=== PATIENT | male | born 1975 | race Caucasian/White ===

== ENCOUNTER 2016-09-18 01:38 | Emergency (ER) | payer OTHER ==
[2016-09-18 02:11] LABS: MEAN CORPUSCULAR HEMOGLOBIN 32.5 pg (27.0-33.0); MEAN CORPUSCULAR HGB CONC 34.3 g/dl (32.0-36.5); MEAN CORPUSCULAR VOLUME 94.6 fl (80.0-96.0); RED CELL DISTRIBUTION WIDTH 12.2 % (11.5-14.5)
[2016-09-18 02:18] LABS: AMPHETAMINES LEVEL URINE NEGATIVE (NEGATIVE); BENZODIAZEPINES URINE NEGATIVE (NEGATIVE); COCAINE METABOLITE URINE NEGATIVE (NEGATIVE); CONTROL LINE INT CTR LINE PRESENT; METHADONE URINE NEGATIVE (NEGATIVE); OPIATES URINE NEGATIVE (NEGATIVE); TRICYCLIC ANTIDEPRESS URINE NEGATIVE (NEGATIVE)
[2016-09-18 02:50] LABS: ALBUMIN 4.4 GM/DL (3.2-5.2); ALBUMIN/GLOBULIN RATIO 1.19 (1.00-1.93); ALKALINE PHOSPHATASE 86 U/L (45-117); ALT/SGPT 48 U/L (12-78); ANION GAP 11 MEQ/L (8-16); AST/SGOT 35 U/L (15-37); BILIRUBIN,DIRECT < 0.1 MG/DL (0.0-0.2); BILIRUBIN,TOTAL 0.2 MG/DL (0.2-1.0); BLOOD UREA NITROGEN 10 MG/DL (7-18); CALCIUM LEVEL 8.7 MG/DL (8.5-10.1); CARBON DIOXIDE LEVEL 24 MEQ/L (21-32); CHLORIDE LEVEL 108 MEQ/L (98-107); CREATININE FOR GFR 0.74 MG/DL (0.70-1.30); GLOMERULAR FILTRATION RATE > 60.0 (>60); GLUCOSE, FASTING 112 MG/DL (70-105); POTASSIUM SERUM 4.3 MEQ/L (3.5-5.1); SODIUM LEVEL 143 MEQ/L (136-145); TOTAL PROTEIN 8.1 GM/DL (6.4-8.2)
--- NOTE | 2016-09-18 11:48 | REP ---
Clinical: Trauma . Technique: AP, lateral, bilateral oblique, and coned-down views. Findings: Alignment and lordosis is maintained. The vertebral bodies including transverse process and spinous processes are intact and there is no evidence for acute fracture / compression injury or subluxation. No evidence for spondylolysis or spondylolisthesis. Degenerative changes primarily involving the L3-4 level with anterior osteophyte, endplate sclerosis and minimal disc space narrowing noted. Impression: No acute fracture or / compression injury or subluxation. Focal degenerative changes at the L3-4 level. Signed by Shivam Cox MD 09/18/2016 11:40 A
--- NOTE | 2016-09-18 12:22 | EDDOCDS ---
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 PD reports patient is intoxicated. Suicide/Homicide risk assessment- The patient admits to and/or has been reported to be having suicidal ideations. 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 Transition of care: patient was not received from another setting of care. 01:42 Acuity: AGUILA Level 3 nn1 01:42 Method Of Arrival: Police Car nn1 12:20 Mental Health Triage Level: Level 2: The patient was brought to the ED for evaluation rs3 because of a legal pickup order. Adult Sepsis Screening: The patient does not have new or worsening altered mentation. Patient's respiratory rate is less than 22. Systolic blood pressure is greater than 100. Patient has a qSOFA score of 0- Negative Sepsis Screen. Mental Health Triage Level: Level 2: The patient was brought to the ED for evaluation because of a legal pickup order. Triage Assessment: 01:45 General: Appears Intoxicated . Behavior is Slurred speech, cooperative . Pain: nn1 Location: left low back and right low back. Pt Declines HIV testing. The patient is triaged at the bedside. See Assessment in Nurses Notes section of ED record. Neurological: Level of Consciousness is awake. Cardiovascular: Capillary refill < 3 seconds. Respiratory: Airway is patent Respiratory effort is even, unlabored, Respiratory pattern is regular, symmetrical. Respiratory: Breath sounds are clear bilaterally. GI: Abdomen is non- distended Bowel sounds present X 4 quads. Abd is soft and non tender X 4 quads. : Urine is clear, diluted. Derm: Skin is pink, warm & dry. Historical: - Allergies: No known drug Allergies; - Home Meds: 1. none - PMHx: Chronic Back pain; - PSHx: none; - Social history: Smoking status: Patient uses tobacco products, heavy tobacco smoker. No barriers to communication noted. - Family history: Not pertinent. - : The pt / caregiver states he / she is not on anticoagulants. Home medication list is obtained from the patient. - Exposure Risk Screening:: None identified. Screenin:00 Screening information is obtained from the patient. Fall risk: No risks identified. slm Assistance ADL's: requires no assistance with activities of daily living. Abuse/DV Screen: The patient / caregiver reports he/she is: not in a situation that causes fear, pain or injury. Nutritional screening: No deficits noted. Advance Directives: Currently, there is no health care proxy. There is no active DNR order. There is no living will. There is no Power of Photo Lab Specialist. Advance directive information has not previously been placed in an [facility] medical record. Further advance directive information is declined. home support is inadequate. Assessment: 01:47 General: See triage assessment . nn1 02:05 General: Appears in no apparent distress, comfortable, Behavior is cooperative. slm Respiratory: Airway is patent Respiratory effort is even, unlabored. 02:32 General: Appears in no apparent distress, comfortable, Behavior is cooperative, pt slm resting on stretcher security observing . 03:50 General: Appears in no apparent distress, comfortable, to be sleeping. Behavior is slm quiet. General: pt asleep on stretcher security observing . Respiratory: Airway is patent Respiratory effort is even, unlabored. Derm: Skin is pink, warm & dry. 04:14 General: Appears in no apparent distress, comfortable, to be sleeping. Behavior is slm cooperative, quiet. General: security observing . Respiratory: Airway is patent Respiratory effort is even, unlabored. Derm: Skin is pink, warm & dry. 05:24 General: Appears in no apparent distress, comfortable, to be sleeping. Behavior is slm quiet. General: pt resting on stretcher security observing . Respiratory: Airway is patent Respiratory effort is even, unlabored. Derm: Skin is pink, warm & dry. 05:47 General: Appears in no apparent distress, comfortable, Behavior is cooperative, slm pleasant. General: pt ambulated to bather denies needs security observing . Neurological: Level of Consciousness is alert, obeys commands. Respiratory: Airway is patent Respiratory effort is even, unlabored. Derm: Skin is pink, warm & dry. 06:28 General: Appears in no apparent distress, comfortable, Behavior is cooperative, pt af2 resting quietly on stretcher with eyes closed, RR even and unlabored. . 07:32 General: Appears in no apparent distress, comfortable, Behavior is appropriate for age, hs1 cooperative. Neurological: No deficits noted. Level of Consciousness is alert, obeys commands. Respiratory: Airway is patent Respiratory effort is even, unlabored. Derm: Skin is pink, warm & dry. 09:35 General: Appears in no apparent distress, to be sleeping. Behavior is cooperative, hs1 Respirations even unlabored. Security continuing safety checks. . 12:19 Reassessment: Patient appears in no apparent distress at this time. Patient denies pain rs3 at this time. Patient states feeling better. Patient states symptoms have improved. Mental Health Eval: 01:44 Referral Information: Evaluation referral is generated by a police agency: [employer] on .. The patient was referred for evaluation because Police responded to 911 hang-up call at which point pt.'s GF informed Officers that pt made statement "if I had my shotgun I would kill myself", Police add that pt.'s firearms had been confiscated by [facility] several weeks prior but unclear as to why. Per Police pt also had numerous pill bottles laying around though pt denied taking any medications. Pt reportedly drinking tonight as well, appears intoxicated on arrival.. 11:31 Mental health consult is initiated at 11:00. 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 [facility] Behavioral Health: The patient is not an established patient of [facility] Behavioral Health. Subjective: The patients chief complaint is pt states, "I was just really drunk and I don't remember anything." He adamantly denies SI and HI, able to CFS. States he's been having chronic lower back pain, which is getting worse, but mostly missing his Father who 2 years ago. Apparently his upcoming anniversary is Father's is in 2 days. Spoke to GF(December, Ph#[phone]) who reports not having any safety concerns and states, "he was just really drunk." She reports pt does not have any previous psych hx and states his suicidal threat was all alcohol related. They returned home from the bar last night and began crying due to missing his father and having to work 2 jobs, then made the suicidal threat. Pt has no access to weapons at home. . Delusions are denied. Patient's mood is appropriate. Hallucinations are denied. Mental Health history: no relevant mental health problems or treatments. Mental Health Admissions: None. Current Outpatient Mental Health Services: None. Current living environment is The patient currently lives with his / her significant other, December, #[phone] . The patient is single. Patient presents to Emergency Department with the following symptoms within the past 2 weeks: alcohol abuse, suicidal ideation with plan for shot gun, however pt was intoxicated and adamantly denies SI currently(while sober) . Substance abuse: Pt denies. Mental status exam: Patients appearance is appropriate, Patient's behavior is cooperative, Speech is normal. Affect is appropriate. Mood is appropriate. Hallucinations are denied. Appetite is normal. Memory is good. Energy level is normal. Content of thought is normal. Thought process is intact. Cognitive level is oriented to person, place, time and situation Patient's insight is fair. Judgement is fair. Rapport with interviewer is good. Suicidal Ideation is denied. Homicidal ideation is denied. Disposition: Medically cleared for disposition by Nicolette Buckley MD Psychiatric Consult is performed by phone with Dr Peter Loya. [facility] Admission Criteria: Not Applicable. [place] Safe [place]: [place] is [place] because the patient does not display any suicidal or homicidal ideations and does not pose a risk to self or others. DSM-V Differential Diagnosis: Alcohol Intoxication. Narrative: Pt is able to be discharged from [facility]. He continues to deny SI and HI, able to CFS. S.O is comfortable with discharge plan and currently en-route to [facility] to transport pt home. Referrals for outpt services was given at bedside. Vital Signs: 01:50 BP 137 / 90; Pulse 116; Resp 18; Temp 98.5; Pulse Ox 95% on R/A; Weight 101.6 kg; slm Height 5 ft. 11 in. (180.34 cm); Pain 9/10; 05:51 BP 117 / 63; Pulse 85; Resp 16; Temp 96.7(T); Pulse Ox 97% on R/A; Pain 7/10; slm 12:19 BP 160 / 98; Pulse 89; Resp 18; Temp 98(T); Pulse Ox 99% on R/A; Pain 0/10; rs3 01:50 Body Mass Index 31.24 (101.60 kg, 180.34 cm) [facility] Vitals: 01:50 Log In time N/A- police car arrival. [facility] ED Course: 01:42 Patient visited by Nafisa Paniagua Reg. hs2 01:42 Patient moved to Waiting hs2 01:42 Patient moved to [facility] hs2 01:44 Triage Initiated nn1 01:45 Abdifatah Hall DO is Attending Physician. cs11 01:46 Patient visited by Abdifatah Hall DO. cs11 01:50 Chata Sandoval LPN is Primary Nurse. [facility] 01:50 MHE Legal paperwork was scanned into [employer] and attached to record. cl 01:51 Pt greeted and oriented to ED. Patient advised of names of staff involved in care, [facility] location of call bales, wait times and NPO status. Accompanied by Law Enforcement, Patient has correct armband on for positive identification. Placed in psych safe attire. Bed in low position. Call light in reach. Side rails up X 1. Security observing. Property removed, inventory done, secured in belongings bag- Placed in locker 1. Door closed. Noise minimized. Moved to private room. Verbal reassurance given. Warm blanket given. Pillow given. Psych Safety Check: Location: Psych Room. Visual Assessment: cooperative \\T\\ this time. 02:01 Patient visited by Chata Sandoval LPN. slm 02:05 No IV's were initiated during this patient's visit. No procedures done that require slm assistance. Labs drawn. (by ED staff). Sent per order to lab. Urine collected. Urine specimen sent to lab. 02:15 Patient visited by Keyshawn Rodriguez. mas 02:32 Patient visited by Chata Sandoval LPN. slm 02:42 Patient visited by Chata Sandoval LPN. slm 02:47 Patient visited by Chata Sandoval LPN. slm 03:01 Patient visited by Chata Sandoval LPN. slm 03:15 Patient visited by Chata Sandoval LPN. slm 03:30 Patient visited by Keyshawn Rodriguez. mas 03:45 Patient visited by Keyshawn Rodriguez. mas 03:46 Patient moved to OBSERVATION cs11 03:52 Patient visited by Chata Sandoval LPN. slm 04:00 Patient visited by Keyshawn Rodriguez. mas 04:14 Patient visited by Chata Sandoval LPN. slm 04:16 Patient visited by Keyshawn Rodriguez. mas 04:45 Patient visited by Keyshawn Rodriguez. mas 05:00 Patient visited by Keyshawn Rodriguez. mas 05:17 Patient visited by Keyshawn Rodriguez. mas 05:24 Patient visited by Chata Sandoval LPN. slm 05:52 Patient visited by Chata Sandoval LPN. slm 05:54 Patient visited by Chata Sandoval LPN. slm 06:17 Patient visited by Chata Sandoval LPN. slm 06:29 Patient visited by Adri Vargas RN. af2 06:30 Patient visited by Keyshawn Rodriguez. mas 06:45 Patient visited by Keyshawn Rodriguez. mas 07:00 Patient visited by Keyshawn Rodriguez. mas 07:10 Attending Physician role handed off by Abdifatah Hall DO sd1 07:10 Nicolette Buckley MD is Attending Physician. sd1 07:18 Patient visited by Kulwinder Noyola Security Aide. pjf 07:35 Patient visited by Kulwinder Noyola Security Aide. pjf 07:47 Patient visited by Kulwinder Noyola Security Aide. pjf 07:58 Patient visited by Kulwinder Noyola Security Aide. pjf 08:13 Patient visited by Kulwinder Noyola Security Aidmerary. pjf 08:35 Patient visited by Kulwinder Noyola Security Rakel. pjf 08:47 Patient visited by Kulwinder Noyola Security Aide. pjf 09:22 Patient visited by Judson Pepper. jml1 09:41 Patient visited by Kulwinder Noyola Security Aide. pjf 10:06 Patient visited by Kulwinder Noyola Security Aide. pjf 10:15 Psych Safety Check: Location: Psych Room. Visual Assessment: Cooperative. pjf 10:32 Patient visited by Kulwinder Noyola Security Aide. pjf 10:48 Patient visited by Kulwinder Noyola Security Aide. pjf 11:10 Lynette Cody,RN is Primary Nurse. rs3 11:14 Patient visited by Kulwinder Noyola Security Aide. pjf 11:39 Patient visited by Kulwinder Noyola Security Aide. pjf 11:49 Patient visited by Kulwinder Noyola Security Aide. pjf 11:50 Spine. Lumbosacral, Complete Returned. EDMS 12:09 Patient visited by Kulwinder Noyola Security Aide. pjf 12:09 Referral list, As provided by PFS is Referral Physician. sd1 12:18 Patient visited by Kulwinder Noyola Security Aide. pjf 12:20 The patient / caregiver is instructed regarding the plan of care and ED course. rs3 Attachments: 01:50 MHE Legal paperwork cl Order Results: Lab Order: Acetaminophen Level; SPEC'M 09/18/16 02:00 Test: ACETAMINOPHEN LEVEL; Value: < 2.0; Range: 10.0-30.0; Abnormal: Below low normal; Units: UG/ML; Status: F Lab Order: Basic Metabolic Profile; SPEC'M 09/18/16 02:00 Test: GLUCOSE, FASTING; Value: 112; Range: 70-105; Abnormal: Above high normal; Units: MG/DL; Status: F Test: BLOOD UREA NITROGEN; Value: 10; Range: 7-18; Units: MG/DL; Status: F Test: CREATININE FOR GFR; Value: 0.74; Range: 0.70-1.30; Units: MG/DL; Status: F Test: GLOMERULAR FILTRATION RATE; Value: > 60.0; Range: >60; Status: F Test: SODIUM LEVEL; Value: 143; Range: 136-145; Units: MEQ/L; Status: F Test: POTASSIUM SERUM; Value: 4.3; Range: 3.5-5.1; Units: MEQ/L; Status: F Test: CHLORIDE LEVEL; Value: 108; Range: 98-107; Abnormal: Above high normal; Units: MEQ/L; Status: F Test: CARBON DIOXIDE LEVEL; Value: 24; Range: 21-32; Units: MEQ/L; Status: F Test: ANION GAP; Value: 11; Range: 8-16; Units: MEQ/L; Status: F Test: CALCIUM LEVEL; Value: 8.7; Range: 8.5-10.1; Units: MG/DL; Status: F Test Note: ; Units are mL/min/1.73 m2 Chronic Kidney Disease Staging per NKF: Stage I & II GFR >=60 Normal to Mildly Decreased Stage III GFR 30-59 Moderately Decreased Stage IV GFR 15-29 Severely Decreased Stage V GFR <15 Very Little GFR Left ESRD GFR <15 on [facility] Lab Order: Complete Blood Count; SPEC'M 09/18/16 02:00 Test: WHITE BLOOD COUNT; Value: 8.0; Range: 4.0-10.0; Units: K/mm3; Status: F Test: RED BLOOD COUNT; Value: 4.99; Range: 4.30-6.10; Units: M/mm3; Status: F Test: HEMOGLOBIN; Value: 16.2; Range: 14.0-18.0; Units: g/dl; Status: F Test: HEMATOCRIT; Value: 47.2; Range: 42.0-52.0; Units: %; Status: F Test: MEAN CORPUSCULAR VOLUME; Value: 94.6; Range: 80.0-96.0; Units: fl; Status: F Test: MEAN CORPUSCULAR HEMOGLOBIN; Value: 32.5; Range: 27.0-33.0; Units: pg; Status: F Test: MEAN CORPUSCULAR HGB CONC; Value: 34.3; Range: 32.0-36.5; Units: g/dl; Status: F Test: RED CELL DISTRIBUTION WIDTH; Value: 12.2; Range: 11.5-14.5; Units: %; Status: F Test: PLATELET COUNT, AUTOMATED; Value: 206; Range: 150-450; Units: k/mm3; Status: F Lab Order: Drug Eval Toxicology ED Only; SPEC'M 09/18/16 01:57 Test: AMPHETAMINES LEVEL URINE; Value: NEGATIVE; Range: NEGATIVE; Status: F Test: BARBITURATES URINE; Value: NEGATIVE; Range: NEGATIVE; Status: F Test: BENZODIAZEPINES URINE; Value: NEGATIVE; Range: NEGATIVE; Status: F Test: CANNABINOIDS URINE; Value: POSITIVE; Range: NEGATIVE; Abnormal: Above high normal; Status: F Test: COCAINE METABOLITE URINE; Value: NEGATIVE; Range: NEGATIVE; Status: F Test: METHADONE URINE; Value: NEGATIVE; Range: NEGATIVE; Status: F Test: OPIATES URINE; Value: NEGATIVE; Range: NEGATIVE; Status: F Test: TRICYCLIC ANTIDEPRESS URINE; Value: NEGATIVE; Range: NEGATIVE; Status: F Test Note: ; FALSE POSITIVE RESULTS CAN BE CAUSED BY THE USE OF PANTOPRAZOLE (PROTONIX). Lab Order: Ethyl Alcohol (ethanol); SPEC'M 09/18/16 02:00 Test: ETHYL ALCOHOL (ETHANOL); Value: 0.241; Range: 0.000-0.010; Abnormal: Above high normal; Units: %; Status: F Lab Order: Liver Profile; SPEC'M 09/18/16 02:00 Test: AST/SGOT; Value: 35; Range: 15-37; Units: U/L; Status: F Test: ALT/SGPT; Value: 48; Range: 12-78; Units: U/L; Status: F Test: ALKALINE PHOSPHATASE; Value: 86; Range: 45-117; Units: U/L; Status: F Test: BILIRUBIN,TOTAL; Value: 0.2; Range: 0.2-1.0; Units: MG/DL; Status: F Test: BILIRUBIN,DIRECT; Value: < 0.1; Range: 0.0-0.2; Units: MG/DL; Status: F Test: TOTAL PROTEIN; Value: 8.1; Range: 6.4-8.2; Units: GM/DL; Status: F Test: ALBUMIN; Value: 4.4; Range: 3.2-5.2; Units: GM/DL; Status: F Test: ALBUMIN/GLOBULIN RATIO; Value: 1.19; Range: 1.00-1.93; Status: F Lab Order: Salicylate Level; SPEC'M 09/18/16 02:00 Test: SALICYLATE LEVEL; Value: 2.7; Range: 5.0-30.0; Abnormal: Below low normal; Units: MG/DL; Status: F Lab Order: Thyroid Stimulating Hormone; SPEC'09/18/16 02:00 Test: THYROID STIMULATING HORMONE; Value: 1.070; Range: 0.358-3.740; Units: uIU/ML; Status: F Radiology Order: Spine. Lumbosacral, Complete Test: Spine. Lumbosacral, Complete REASON FOR EXAMINATION: Trauma; Clinical: Trauma .; ; Technique: AP, lateral, bilateral oblique, and coned-down views.; ; Findings: Alignment and lordosis is maintained. The vertebral bodies including; transverse process and spinous processes are intact and there is no evidence for; acute fracture / compression injury or subluxation. No evidence for; spondylolysis or spondylolisthesis. Degenerative changes primarily involving the; L3-4 level with anterior osteophyte, endplate sclerosis and minimal disc space; narrowing noted.; ; Impression:; No acute fracture or / compression injury or subluxation.; Focal degenerative changes at the L3-4 level.; ; ; Signed by; Shivam Cox MD 09/18/2016 11:40 A; Outcome: 03:51 No special radiology studies were completed. [facility] 12:10 Discharge ordered by Provider. sd1 12:20 Discharge Assessment: patient administered narcotics - no. The following High Risk rs3 Discharge criteria are identified: None. Discharged to home with family. Condition: stable. Discharge instructions given to patient, Instructed on discharge instructions, follow up and referral plans. medication usage, Demonstrated understanding of instructions, medications, Pt was receptive of discharge instructions/ teaching. 12:21 Patient left the ED. rs3 Signatures: Dispatcher [employer] EDMS Nicolette Buckley MD MD sd1 Hector Pandey, PSA PSA cl Jazmín, Kulwinder, Security Aide Secstacyf Jaqueline Barbosa, PSA PSA ml4 Lynette Cody RN RN rs3 Adelaide Springer RN RN hs1 Keyshawn Rodriguez Jamie jmAbdifatah Gusman, DO cs11 Chata Sandoval LPN LPN Adri Marin,RN RN af2 Osorio Kirkland RN RN nn1 Nafisa Paniagua, Reg Reg hs2 MTDD
--- NOTE | 2016-09-18 12:22 | EDDOCDS ---
Physician Documentation [facility] Name: Raj Clarke Age: 41 yrs Sex: Male : 1975 Arrival Date: 09/18/2016 Time: 01:38 Bed OBSERVATION Private MD: Disposition: 09/18/16 12:10 Discharged to Home/Self Care. Impression: Alcohol use, unspecified with intoxication. - Condition is Stable. - Discharge Instructions: Alcohol Intoxication. - Medication Reconciliation, Local Pharmacy Hours form. - Follow up: Referral list, As provided by PFS; When: Call to arrange an appointment. - Problem is new. - Symptoms have improved. Historical: - Allergies: No known drug Allergies; - Home Meds: 1. none - PMHx: Chronic Back pain; - PSHx: none; - Social history: Smoking status: Patient uses tobacco products, heavy tobacco smoker. No barriers to communication noted. - Family history: Not pertinent. - : The pt / caregiver states he / she is not on anticoagulants. Home medication list is obtained from the patient. - Exposure Risk Screening:: None identified. Vital Signs: 09/18 01:50 BP 137 / 90; Pulse 116; Resp 18; Temp 98.5; Pulse Ox 95% on R/A; Weight 101.6 kg / slm 223.99 lbs; Height 5 ft. 11 in. (180.34 cm); Pain 9/10; 05:51 BP 117 / 63; Pulse 85; Resp 16; Temp 96.7(T); Pulse Ox 97% on R/A; Pain 7/10; slm 12:19 BP 160 / 98; Pulse 89; Resp 18; Temp 98(T); Pulse Ox 99% on R/A; Pain 0/10; rs3 01:50 Body Mass Index 31.24 (101.60 kg, 180.34 cm) slm MDM: 01:46 Consult PFS/PSA/Industrial Technologist ordered. cs11 01:46 Consult PFS/PSA/Industrial Technologist: Patient's case requires discussion with on-call cs11 Psychiatrist ordered. 01:46 PSA/PFS to call Nursing [facility] Nurse, to enter patient data on [place] Safe Act if patient cs11 involuntarily admitted or transferred for SI or HI ordered. 01:46 Confirm accurate psychiatric medication list and times of last dosage ordered. cs11 01:46 Detain Pt Until Medically/PFS Cleared ordered. cs11 01:46 Acetaminophen Level Ordered. EDMS 01:46 Basic Metabolic Profile Ordered. EDMS 01:46 Complete Blood Count Ordered. EDMS 01:46 Drug Eval Toxicology ED Only Ordered. EDMS 01:46 Ethyl Alcohol (ethanol) Ordered. EDMS 01:46 Liver Profile Ordered. EDMS 01:46 Salicylate Level Ordered. EDMS 01:46 Thyroid Stimulating Hormone Ordered. EDMS 01:50 MHE Legal paperwork was scanned into [facility] and attached to record. cl 03:50 REGULAR DIET PLASTIC TORRES+DIET ordered. EDMS 04:19 Acetaminophen Level Reviewed. cs11 04:19 Basic Metabolic Profile Reviewed. cs11 04:19 Drug Eval Toxicology ED Only Reviewed. cs11 04:19 Ethyl Alcohol (ethanol) Reviewed. cs11 04:19 Salicylate Level Reviewed. cs11 04:19 Complete Blood Count Reviewed. cs11 04:19 Liver Profile Reviewed. cs11 04:19 Thyroid Stimulating Hormone Reviewed. cs11 11:26 Spine. Lumbosacral, Complete Ordered. EDMS 11:27 REGULAR DIET PLASTIC TORRES+DIET ordered. EDMS Signatures: Dispatcher [employer] Information EDMS Nicolette Buckley MD MD sd1 Hector Pandey, PSA PSA cl Lynette Cody,RN RN rs3 Abdifatah Hall DO DO cs11 Osorio KirklandRN RN nn1 MTDD
--- NOTE | 2016-09-20 13:22 | EDDOCDS ---
Physician Documentation [facility] [facility] Name: Raj Clarke Age: 41 yrs Sex: Male : 1975 Arrival Date: 09/18/2016 Time: 01:38 Bed OBSERVATION Private MD: Disposition: 09/18/16 12:10 Discharged to Home/Self Care. Impression: Alcohol use, unspecified with intoxication. - Condition is Stable. - Discharge Instructions: Alcohol Intoxication. - Medication Reconciliation, Local Pharmacy Hours form. - Follow up: Referral list, As provided by PFS; When: Call to arrange an appointment. - Problem is new. - Symptoms have improved. Historical: - Allergies: No known drug Allergies; - Home Meds: 1. none - PMHx: Chronic Back pain; - PSHx: none; - Social history: Smoking status: Patient uses tobacco products, heavy tobacco smoker. No barriers to communication noted. - Family history: Not pertinent. - : The pt / caregiver states he / she is not on anticoagulants. Home medication list is obtained from the patient. - Exposure Risk Screening:: None identified. Vital Signs: 09/18 01:50 BP 137 / 90; Pulse 116; Resp 18; Temp 98.5; Pulse Ox 95% on R/A; Weight 101.6 kg / slm 223.99 lbs; Height 5 ft. 11 in. (180.34 cm); Pain 9/10; 05:51 BP 117 / 63; Pulse 85; Resp 16; Temp 96.7(T); Pulse Ox 97% on R/A; Pain 7/10; slm 12:19 BP 160 / 98; Pulse 89; Resp 18; Temp 98(T); Pulse Ox 99% on R/A; Pain 0/10; rs3 01:50 Body Mass Index 31.24 (101.60 kg, 180.34 cm) slm MDM: 01:46 Consult PFS/PSA/Box Cutter ordered. cs11 01:46 Consult PFS/PSA/Box Cutter: Patient's case requires discussion with on-call cs11 Psychiatrist ordered. 01:46 PSA/PFS to call Nursing Embalmer Apprentice, to enter patient data on [place] Safe Act if patient cs11 involuntarily admitted or transferred for SI or HI ordered. 01:46 Confirm accurate psychiatric medication list and times of last dosage ordered. cs11 01:46 Detain Pt Until Medically/PFS Cleared ordered. cs11 01:46 Acetaminophen Level Ordered. EDMS 01:46 Basic Metabolic Profile Ordered. EDMS 01:46 Complete Blood Count Ordered. EDMS 01:46 Drug Eval Toxicology ED Only Ordered. EDMS 01:46 Ethyl Alcohol (ethanol) Ordered. EDMS 01:46 Liver Profile Ordered. EDMS 01:46 Salicylate Level Ordered. EDMS 01:46 Thyroid Stimulating Hormone Ordered. EDMS 01:50 [facility] Legal paperwork was scanned into [employer] and attached to record. cl 03:50 REGULAR DIET PLASTIC TORRES+DIET ordered. EDMS 04:19 Acetaminophen Level Reviewed. cs11 04:19 Basic Metabolic Profile Reviewed. cs11 04:19 Drug Eval Toxicology ED Only Reviewed. cs11 04:19 Ethyl Alcohol (ethanol) Reviewed. cs11 04:19 Salicylate Level Reviewed. cs11 04:19 Complete Blood Count Reviewed. cs11 04:19 Liver Profile Reviewed. cs11 04:19 Thyroid Stimulating Hormone Reviewed. cs11 11:26 Spine. Lumbosacral, Complete Ordered. EDMS 11:27 REGULAR DIET PLASTIC TORRES+DIET ordered. EDMS 17:11 T-Sheet-- Draft Copy was scanned into [employer] and attached to record. klr Signatures: Dispatcher [employer] EDMO Nicolette Buckley MD MD sd1 Hector Pandey, PSA PSA cl Lynette Cody,RN RN rs3 Abdifatah Hall DO DO cs11 Osorio KirklandRN RN nn1 Sera Lewis kltai The chart was reviewed and I authenticate all verbal orders and agree with the evaluation and treatment provided.Attachments: 17:11 T-Sheet-- Draft Copy klr Chart Complete MTDD
--- NOTE | 2016-09-20 13:22 | EDDOCDS ---
Physician Documentation [facility] Name: Raj Clarke Age: 41 yrs Sex: Male : 1975 Arrival Date: 09/18/2016 Time: 01:38 Bed OBSERVATION Private MD: Disposition: 09/18/16 12:10 Discharged to Home/Self Care. Impression: Alcohol use, unspecified with intoxication. - Condition is Stable. - Discharge Instructions: Alcohol Intoxication. - Medication Reconciliation, Local Pharmacy Hours form. - Follow up: Referral list, As provided by PFS; When: Call to arrange an appointment. - Problem is new. - Symptoms have improved. Historical: - Allergies: No known drug Allergies; - Home Meds: 1. none - PMHx: Chronic Back pain; - PSHx: none; - Social history: Smoking status: Patient uses tobacco products, heavy tobacco smoker. No barriers to communication noted. - Family history: Not pertinent. - : The pt / caregiver states he / she is not on anticoagulants. Home medication list is obtained from the patient. - Exposure Risk Screening:: None identified. Vital Signs: 09/18 01:50 BP 137 / 90; Pulse 116; Resp 18; Temp 98.5; Pulse Ox 95% on R/A; Weight 101.6 kg / slm 223.99 lbs; Height 5 ft. 11 in. (180.34 cm); Pain 9/10; 05:51 BP 117 / 63; Pulse 85; Resp 16; Temp 96.7(T); Pulse Ox 97% on R/A; Pain 7/10; slm 12:19 BP 160 / 98; Pulse 89; Resp 18; Temp 98(T); Pulse Ox 99% on R/A; Pain 0/10; rs3 01:50 Body Mass Index 31.24 (101.60 kg, 180.34 cm) slm MDM: 01:46 Consult PFS/PSA/Primary Care Nurse Practitioner ordered. cs11 01:46 Consult PFS/PSA/Primary Care Nurse Practitioner: Patient's case requires discussion with on-call cs11 Psychiatrist ordered. 01:46 PSA/PFS to call Nursing Aerospace Project Engineer, to enter patient data on [place] Safe Act if patient cs11 involuntarily admitted or transferred for SI or HI ordered. 01:46 Confirm accurate psychiatric medication list and times of last dosage ordered. cs11 01:46 Detain Pt Until Medically/PFS Cleared ordered. cs11 01:46 Acetaminophen Level Ordered. EDMS 01:46 Basic Metabolic Profile Ordered. EDMS 01:46 Complete Blood Count Ordered. EDMS 01:46 Drug Eval Toxicology ED Only Ordered. EDMS 01:46 Ethyl Alcohol (ethanol) Ordered. EDMS 01:46 Liver Profile Ordered. EDMS 01:46 Salicylate Level Ordered. EDMS 01:46 Thyroid Stimulating Hormone Ordered. EDMS 01:50 [facility] Legal paperwork was scanned into [employer] and attached to record. cl 03:50 REGULAR DIET PLASTIC TORRES+DIET ordered. EDMS 04:19 Acetaminophen Level Reviewed. cs11 04:19 Basic Metabolic Profile Reviewed. cs11 04:19 Drug Eval Toxicology ED Only Reviewed. cs11 04:19 Ethyl Alcohol (ethanol) Reviewed. cs11 04:19 Salicylate Level Reviewed. cs11 04:19 Complete Blood Count Reviewed. cs11 04:19 Liver Profile Reviewed. cs11 04:19 Thyroid Stimulating Hormone Reviewed. cs11 11:26 Spine. Lumbosacral, Complete Ordered. EDMS 11:27 REGULAR DIET PLASTIC TORRES+DIET ordered. EDMS 17:11 T-Sheet-- Draft Copy was scanned into [employer] and attached to record. klr Signatures: Dispatcher [employer] EDMA Nicolette Buckley MD MD sd1 Hector Pandey, PSA PSA cl Lynette Cody,RN RN rs3 Abdifatah Hall DO DO cs11 Osorio KirklandRN RN nn1 Sera Lewis kltai The chart was reviewed and I authenticate all verbal orders and agree with the evaluation and treatment provided.Attachments: 17:11 T-Sheet-- Draft Copy klr Chart Complete MTDD
--- NOTE | 2016-09-20 13:22 | EDDOCDS ---
Nurse's Notes [facility] Name: Raj Clarke Age: 41 yrs Sex: Male : 1975 Arrival Date: 09/18/2016 Time: 01:38 Bed OBSERVATION Private MD: Diagnosis: Alcohol use, unspecified with intoxication Presentation: 09/18 01:42 Presenting complaint: PD reports bean picker call due to suicidal threats from patient, PD nn1 states patient told girlfriend "If i had my shotgun I would kill myself". PD reports patient is intoxicated. Suicide/Homicide risk assessment- The patient admits to and/or has been reported to be having suicidal ideations. Status: Patient is not a room service runner or dependent. Transition of care: patient was not received from another setting of care. 01:42 Acuity: AGUILA Level 3 nn1 01:42 Method Of Arrival: Police Car nn1 12:20 Mental Health Triage Level: Level 2: The patient was brought to the ED for evaluation rs3 because of a legal pickup order. Adult Sepsis Screening: The patient does not have new or worsening altered mentation. Patient's respiratory rate is less than 22. Systolic blood pressure is greater than 100. Patient has a qSOFA score of 0- Negative Sepsis Screen. Mental Health Triage Level: Level 2: The patient was brought to the ED for evaluation because of a legal pickup order. Triage Assessment: 01:45 General: Appears Intoxicated . Behavior is Slurred speech, cooperative . Pain: nn1 Location: left low back and right low back. Pt Declines HIV testing. The patient is triaged at the bedside. See Assessment in Nurses Notes section of ED record. Neurological: Level of Consciousness is awake. Cardiovascular: Capillary refill < 3 seconds. Respiratory: Airway is patent Respiratory effort is even, unlabored, Respiratory pattern is regular, symmetrical. Respiratory: Breath sounds are clear bilaterally. GI: Abdomen is non- distended Bowel sounds present X 4 quads. Abd is soft and non tender X 4 quads. : Urine is clear, diluted. Derm: Skin is pink, warm & dry. Historical: - Allergies: No known drug Allergies; - Home Meds: 1. none - PMHx: Chronic Back pain; - PSHx: none; - Social history: Smoking status: Patient uses tobacco products, heavy tobacco smoker. No barriers to communication noted. - Family history: Not pertinent. - : The pt / caregiver states he / she is not on anticoagulants. Home medication list is obtained from the patient. - Exposure Risk Screening:: None identified. Screenin:00 Screening information is obtained from the patient. Fall risk: No risks identified. slm Assistance ADL's: requires no assistance with activities of daily living. Abuse/DV Screen: The patient / caregiver reports he/she is: not in a situation that causes fear, pain or injury. Nutritional screening: No deficits noted. Advance Directives: Currently, there is no health care proxy. There is no active DNR order. There is no living will. There is no Power of Lot Associate. Advance directive information has not previously been placed in an [facility] medical record. Further advance directive information is declined. home support is inadequate. Assessment: 01:47 General: See triage assessment . nn1 02:05 General: Appears in no apparent distress, comfortable, Behavior is cooperative. slm Respiratory: Airway is patent Respiratory effort is even, unlabored. 02:32 General: Appears in no apparent distress, comfortable, Behavior is cooperative, pt slm resting on stretcher security observing . 03:50 General: Appears in no apparent distress, comfortable, to be sleeping. Behavior is slm quiet. General: pt asleep on stretcher security observing . Respiratory: Airway is patent Respiratory effort is even, unlabored. Derm: Skin is pink, warm & dry. 04:14 General: Appears in no apparent distress, comfortable, to be sleeping. Behavior is slm cooperative, quiet. General: security observing . Respiratory: Airway is patent Respiratory effort is even, unlabored. Derm: Skin is pink, warm & dry. 05:24 General: Appears in no apparent distress, comfortable, to be sleeping. Behavior is slm quiet. General: pt resting on stretcher security observing . Respiratory: Airway is patent Respiratory effort is even, unlabored. Derm: Skin is pink, warm & dry. 05:47 General: Appears in no apparent distress, comfortable, Behavior is cooperative, slm pleasant. General: pt ambulated to bather denies needs security observing . Neurological: Level of Consciousness is alert, obeys commands. Respiratory: Airway is patent Respiratory effort is even, unlabored. Derm: Skin is pink, warm & dry. 06:28 General: Appears in no apparent distress, comfortable, Behavior is cooperative, pt af2 resting quietly on stretcher with eyes closed, RR even and unlabored. . 07:32 General: Appears in no apparent distress, comfortable, Behavior is appropriate for age, hs1 cooperative. Neurological: No deficits noted. Level of Consciousness is alert, obeys commands. Respiratory: Airway is patent Respiratory effort is even, unlabored. Derm: Skin is pink, warm & dry. 09:35 General: Appears in no apparent distress, to be sleeping. Behavior is cooperative, hs1 Respirations even unlabored. Security continuing safety checks. . 12:19 Reassessment: Patient appears in no apparent distress at this time. Patient denies pain rs3 at this time. Patient states feeling better. Patient states symptoms have improved. Mental Health Eval: 01:44 Referral Information: Evaluation referral is generated by a police agency: [employer] on .. The patient was referred for evaluation because Police responded to 911 hang-up call at which point pt.'s GF informed Officers that pt made statement "if I had my shotgun I would kill myself", Police add that pt.'s firearms had been confiscated by [facility] several weeks prior but unclear as to why. Per Police pt also had numerous pill bottles laying around though pt denied taking any medications. Pt reportedly drinking tonight as well, appears intoxicated on arrival.. 11:31 Mental health consult is initiated at 11:00. Status: The patient is not a ml4 room service runner or dependent. [facility] Behavioral Health: The patient is not an established patient of [facility] Behavioral Health. Subjective: The patients chief complaint is pt states, "I was just really drunk and I don't remember anything." He adamantly denies SI and HI, able to CFS. States he's been having chronic lower back pain, which is getting worse, but mostly missing his Father who 2 years ago. Apparently his upcoming anniversary is Father's is in 2 days. Spoke to GF(December, Ph#[phone]) who reports not having any safety concerns and states, "he was just really drunk." She reports pt does not have any previous psych hx and states his suicidal threat was all alcohol related. They returned home from the bar last night and began crying due to missing his father and having to work 2 jobs, then made the suicidal threat. Pt has no access to weapons at home. . Delusions are denied. Patient's mood is appropriate. Hallucinations are denied. Mental Health history: no relevant mental health problems or treatments. Mental Health Admissions: None. Current Outpatient Mental Health Services: None. Current living environment is The patient currently lives with his / her significant other, December, #[phone] . The patient is single. Patient presents to Emergency Department with the following symptoms within the past 2 weeks: alcohol abuse, suicidal ideation with plan for shot gun, however pt was intoxicated and adamantly denies SI currently(while sober) . Substance abuse: Pt denies. Mental status exam: Patients appearance is appropriate, Patient's behavior is cooperative, Speech is normal. Affect is appropriate. Mood is appropriate. Hallucinations are denied. Appetite is normal. Memory is good. Energy level is normal. Content of thought is normal. Thought process is intact. Cognitive level is oriented to person, place, time and situation Patient's insight is fair. Judgement is fair. Rapport with interviewer is good. Suicidal Ideation is denied. Homicidal ideation is denied. Disposition: Medically cleared for disposition by Nicolette Buckley MD Psychiatric Consult is performed by phone with Dr Peter Loya. [facility] Admission Criteria: Not Applicable. [place] is not applicable because the patient does not display any suicidal or homicidal ideations and does not pose a risk to self or others. DSM-V Differential Diagnosis: Alcohol Intoxication. Narrative: Pt is able to be discharged from [facility]. He continues to deny SI and HI, able to CFS. S.O is comfortable with discharge plan and currently en-route to [facility] to transport pt home. Referrals for outpt services was given at bedside. Vital Signs: 01:50 BP 137 / 90; Pulse 116; Resp 18; Temp 98.5; Pulse Ox 95% on R/A; Weight 101.6 kg; slm Height 5 ft. 11 in. (180.34 cm); Pain 9/10; 05:51 BP 117 / 63; Pulse 85; Resp 16; Temp 96.7(T); Pulse Ox 97% on R/A; Pain 7/10; slm 12:19 BP 160 / 98; Pulse 89; Resp 18; Temp 98(T); Pulse Ox 99% on R/A; Pain 0/10; rs3 01:50 Body Mass Index 31.24 (101.60 kg, 180.34 cm) [facility] Vitals: 01:50 Log In time N/A- police car arrival. [facility] ED Course: 01:42 Patient visited by Nafisa Paniagua Reg. hs2 01:42 Patient moved to Waiting hs2 01:42 Patient moved to [facility] hs2 01:44 Triage Initiated nn1 01:45 Abdifatah Hall DO is Attending Physician. cs11 01:46 Patient visited by Abdifatah Hall DO. cs11 01:50 Chata Sandoval LPN is Primary Nurse. [facility] 01:50 MHE Legal paperwork was scanned into [employer] and attached to record. cl 01:51 Pt greeted and oriented to ED. Patient advised of names of staff involved in care, [facility] location of call bales, wait times and NPO status. Accompanied by Law Enforcement, Patient has correct armband on for positive identification. Placed in psych safe attire. Bed in low position. Call light in reach. Side rails up X 1. Security observing. Property removed, inventory done, secured in belongings bag- Placed in locker 1. Door closed. Noise minimized. Moved to private room. Verbal reassurance given. Warm blanket given. Pillow given. Psych Safety Check: Location: Psych Room. Visual Assessment: cooperative \\T\\ this time. 02:01 Patient visited by Chata Sandoval LPN. slm 02:05 No IV's were initiated during this patient's visit. No procedures done that require slm assistance. Labs drawn. (by ED staff). Sent per order to lab. Urine collected. Urine specimen sent to lab. 02:15 Patient visited by Keyshawn Rodriguez. mas 02:32 Patient visited by Chata Sandoval LPN. slm 02:42 Patient visited by Chata Sandoval LPN. slm 02:47 Patient visited by Chata Sandoval LPN. slm 03:01 Patient visited by Chata Sandoval LPN. slm 03:15 Patient visited by Chata Sandoval LPN. slm 03:30 Patient visited by Keyshawn Rodriguez. mas 03:45 Patient visited by Keyshawn Rodriguez. mas 03:46 Patient moved to OBSERVATION cs11 03:52 Patient visited by Chata Sandoval LPN. slm 04:00 Patient visited by Keyshawn Rodriguez. mas 04:14 Patient visited by Chata Sandoval LPN. slm 04:16 Patient visited by Keyshawn Rodriguez. mas 04:45 Patient visited by Keyshawn Rodriguez. mas 05:00 Patient visited by Keyshawn Rodriguez. mas 05:17 Patient visited by Keyshawn Rodriguez. mas 05:24 Patient visited by Chata Sandoval LPN. slm 05:52 Patient visited by Chata Sandoval LPN. slm 05:54 Patient visited by Chata Sandoval LPN. slm 06:17 Patient visited by Chata Sandoval LPN. slm 06:29 Patient visited by Adri Vargas RN. af2 06:30 Patient visited by Keyshanw Rodriguez. mas 06:45 Patient visited by Keyshawn Rodriguez. mas 07:00 Patient visited by Keyshawn Rodriguez. mas 07:10 Attending Physician role handed off by Abdifatah Hall DO sd1 07:10 Nicolette Buckley MD is Attending Physician. sd1 07:18 Patient visited by Kulwinder Noyola Security Aide. pjf 07:35 Patient visited by Kulwinder Noyola Security Aide. pjf 07:47 Patient visited by Kulwinder Noyola Security Aide. pjf 07:58 Patient visited by Kulwinder Noyola Security Aide. pjf 08:13 Patient visited by Kulwinder Nooyla Security Aidmerary. pjf 08:35 Patient visited by Kulwinder Noyola Security Rakel. pjf 08:47 Patient visited by Kulwinder Noyola Security Aide. pjf 09:22 Patient visited by Judson Pepper. jml1 09:41 Patient visited by Kulwinder Noyola Security Aide. pjf 10:06 Patient visited by Kulwinder Noyola Security Aide. pjf 10:15 Psych Safety Check: Location: Psych Room. Visual Assessment: Cooperative. pjf 10:32 Patient visited by Kulwinder Noyola Security Aide. pjf 10:48 Patient visited by Kulwinder Noyola Security Aide. pjf 11:10 Lynette Cody,RN is Primary Nurse. rs3 11:14 Patient visited by Kulwinder Noyola Security Aide. pjf 11:39 Patient visited by Kulwinder Noyola Security Aide. pjf 11:49 Patient visited by Kulwinder Noyola Security Aide. pjf 11:50 Spine. Lumbosacral, Complete Returned. EDMS 12:09 Patient visited by Kulwinder Noyola Security Aide. pjf 12:09 Referral list, As provided by PFS is Referral Physician. sd1 12:18 Patient visited by Kulwinder Noyola Security Aide. pjf 12:20 The patient / caregiver is instructed regarding the plan of care and ED course. rs3 17:11 T-Sheet-- Draft Copy was scanned into [employer] and attached to record. klr Attachments: 01:50 E Legal paperwork cl Order Results: Lab Order: Acetaminophen Level; SPEC'M 09/18/16 02:00 Test: ACETAMINOPHEN LEVEL; Value: < 2.0; Range: 10.0-30.0; Abnormal: Below low normal; Units: UG/ML; Status: F Lab Order: Basic Metabolic Profile; SPEC'M 09/18/16 02:00 Test: GLUCOSE, FASTING; Value: 112; Range: 70-105; Abnormal: Above high normal; Units: MG/DL; Status: F Test: BLOOD UREA NITROGEN; Value: 10; Range: 7-18; Units: MG/DL; Status: F Test: CREATININE FOR GFR; Value: 0.74; Range: 0.70-1.30; Units: MG/DL; Status: F Test: GLOMERULAR FILTRATION RATE; Value: > 60.0; Range: >60; Status: F Test: SODIUM LEVEL; Value: 143; Range: 136-145; Units: MEQ/L; Status: F Test: POTASSIUM SERUM; Value: 4.3; Range: 3.5-5.1; Units: MEQ/L; Status: F Test: CHLORIDE LEVEL; Value: 108; Range: 98-107; Abnormal: Above high normal; Units: MEQ/L; Status: F Test: CARBON DIOXIDE LEVEL; Value: 24; Range: 21-32; Units: MEQ/L; Status: F Test: ANION GAP; Value: 11; Range: 8-16; Units: MEQ/L; Status: F Test: CALCIUM LEVEL; Value: 8.7; Range: 8.5-10.1; Units: MG/DL; Status: F Test Note: ; Units are mL/min/1.73 m2 Chronic Kidney Disease Staging per NKF: Stage I & II GFR >=60 Normal to Mildly Decreased Stage III GFR 30-59 Moderately Decreased Stage IV GFR 15-29 Severely Decreased Stage V GFR <15 Very Little GFR Left ESRD GFR <15 on WIRELESS SALES REPRESENTATIVE Lab Order: Complete Blood Count; SPEC'M 09/18/16 02:00 Test: WHITE BLOOD COUNT; Value: 8.0; Range: 4.0-10.0; Units: K/mm3; Status: F Test: RED BLOOD COUNT; Value: 4.99; Range: 4.30-6.10; Units: M/mm3; Status: F Test: HEMOGLOBIN; Value: 16.2; Range: 14.0-18.0; Units: g/dl; Status: F Test: HEMATOCRIT; Value: 47.2; Range: 42.0-52.0; Units: %; Status: F Test: MEAN CORPUSCULAR VOLUME; Value: 94.6; Range: 80.0-96.0; Units: fl; Status: F Test: MEAN CORPUSCULAR HEMOGLOBIN; Value: 32.5; Range: 27.0-33.0; Units: pg; Status: F Test: MEAN CORPUSCULAR HGB CONC; Value: 34.3; Range: 32.0-36.5; Units: g/dl; Status: F Test: RED CELL DISTRIBUTION WIDTH; Value: 12.2; Range: 11.5-14.5; Units: %; Status: F Test: PLATELET COUNT, AUTOMATED; Value: 206; Range: 150-450; Units: k/mm3; Status: F Lab Order: Drug Eval Toxicology ED Only; SPEC'M 09/18/16 01:57 Test: AMPHETAMINES LEVEL URINE; Value: NEGATIVE; Range: NEGATIVE; Status: F Test: BARBITURATES URINE; Value: NEGATIVE; Range: NEGATIVE; Status: F Test: BENZODIAZEPINES URINE; Value: NEGATIVE; Range: NEGATIVE; Status: F Test: CANNABINOIDS URINE; Value: POSITIVE; Range: NEGATIVE; Abnormal: Above high normal; Status: F Test: COCAINE METABOLITE URINE; Value: NEGATIVE; Range: NEGATIVE; Status: F Test: METHADONE URINE; Value: NEGATIVE; Range: NEGATIVE; Status: F Test: OPIATES URINE; Value: NEGATIVE; Range: NEGATIVE; Status: F Test: TRICYCLIC ANTIDEPRESS URINE; Value: NEGATIVE; Range: NEGATIVE; Status: F Test Note: ; FALSE POSITIVE RESULTS CAN BE CAUSED BY THE USE OF PANTOPRAZOLE (PROTONIX). Lab Order: Ethyl Alcohol (ethanol); SPEC'M 09/18/16 02:00 Test: ETHYL ALCOHOL (ETHANOL); Value: 0.241; Range: 0.000-0.010; Abnormal: Above high normal; Units: %; Status: F Lab Order: Liver Profile; SPEC'M 09/18/16 02:00 Test: AST/SGOT; Value: 35; Range: 15-37; Units: U/L; Status: F Test: ALT/SGPT; Value: 48; Range: 12-78; Units: U/L; Status: F Test: ALKALINE PHOSPHATASE; Value: 86; Range: 45-117; Units: U/L; Status: F Test: BILIRUBIN,TOTAL; Value: 0.2; Range: 0.2-1.0; Units: MG/DL; Status: F Test: BILIRUBIN,DIRECT; Value: < 0.1; Range: 0.0-0.2; Units: MG/DL; Status: F Test: TOTAL PROTEIN; Value: 8.1; Range: 6.4-8.2; Units: GM/DL; Status: F Test: ALBUMIN; Value: 4.4; Range: 3.2-5.2; Units: GM/DL; Status: F Test: ALBUMIN/GLOBULIN RATIO; Value: 1.19; Range: 1.00-1.93; Status: F Lab Order: Salicylate Level; SPEC'M 09/18/16 02:00 Test: SALICYLATE LEVEL; Value: 2.7; Range: 5.0-30.0; Abnormal: Below low normal; Units: MG/DL; Status: F Lab Order: Thyroid Stimulating Hormone; SPEC'M 09/18/16 02:00 Test: THYROID STIMULATING HORMONE; Value: 1.070; Range: 0.358-3.740; Units: uIU/ML; Status: F Radiology Order: Spine. Lumbosacral, Complete Test: Spine. Lumbosacral, Complete REASON FOR EXAMINATION: Trauma; Clinical: Trauma .; ; Technique: AP, lateral, bilateral oblique, and coned-down views.; ; Findings: Alignment and lordosis is maintained. The vertebral bodies including; transverse process and spinous processes are intact and there is no evidence for; acute fracture / compression injury or subluxation. No evidence for; spondylolysis or spondylolisthesis. Degenerative changes primarily involving the; L3-4 level with anterior osteophyte, endplate sclerosis and minimal disc space; narrowing noted.; ; Impression:; No acute fracture or / compression injury or subluxation.; Focal degenerative changes at the L3-4 level.; ; ; Signed by; Shivam Cox MD 09/18/2016 11:40 A; Outcome: 03:51 No special radiology studies were completed. [facility] 12:10 Discharge ordered by Provider. sd1 12:20 Discharge Assessment: patient administered narcotics - no. The following High Risk rs3 Discharge criteria are identified: None. Discharged to home with family. Condition: stable. Discharge instructions given to patient, Instructed on discharge instructions, follow up and referral plans. medication usage, Demonstrated understanding of instructions, medications, Pt was receptive of discharge instructions/ teaching. 12:21 Patient left the ED. rs3 Signatures: Dispatcher [employer] EDMS Nicolette Buckley MD MD sd1 Hector Pandey, PSA PSA Kulwinder Sutton, Security Aide IronJaqueline Jackson, PSA PSA ml4 Lynette Cody RN RN rs3 Adelaide Springer RN RN hs1 Keyshawn Rodriguez Jamie jml1 Abdifatah Hall DO DO cs11 Chata Sandoval LPN LPN m Adri Vargas,RN RN af2 Osorio Kirkland RN RN nn1 Nafisa Paniagua, Reg Reg hs2 Sera Lewis Chart Complete MTDD
== END 2016-09-18 12:21 | disposition home or self-care (01) ==
LOC: M ED 01:38
DX: F10.929 Alcohol use, unspecified with intoxication, unspecified (principal); G89.29 Other chronic pain; M54.9 Dorsalgia, unspecified; Z72.0 Tobacco use
CPT/HCPCS: 36415; 72110; 80048; 80076; 80306; 84443; 85027; 99284; G0480

== ENCOUNTER → 2016-10-26 | Outpatient (CLI) | payer OTHER ==
--- NOTE | 2016-10-26 08:51 | REP ---
MRI CERVICAL SPINE WITHOUT CONTRAST: HISTORY: Neck and shoulder pain. A disc bulge is present at the C3-4 level. There is minimal effacement of the thecal sac without spinal cord compression. Bilateral uncinate process hypertrophy is present. This produces mild and moderate narrowing of the right and left C3 neural foramina respectively. A disc bulge is present at the C5-6 level. There is mild effacement of the thecal sac without spinal cord compression. Bilateral uncinate process hypertrophy is present. This produces moderate narrowing of the C5 neural foramina. A disc bulge is present at the C6-7 level. There is minimal effacement of the thecal sac without spinal cord compression. Bilateral uncinate process hypertrophy is present. This produces mild and moderate narrowing of the right and left C6 neural foramina respectively. There is no other disc bulge or herniation. The remaining neural foramina are patent. The spinal cord is normal in signal intensity. There is no intradural extramedullary lesion. Normal signal intensity is present in the cervical vertebral bodies. IMPRESSION: There is cervical spondylosis at the C3-4, C5-6 and C6-7 levels without spinal cord compression. Signed by Antonio Lim MD 10/26/2016 09:03 A
== END ==
LOC: M RAD 07:13
PROVIDERS: ATTEND Physician Assistant
DX: M47.812 Spondylosis without myelopathy or radiculopathy, cervical region (principal)

== ENCOUNTER → 2016-11-14 | Outpatient (CLI) | payer OTHER ==
--- NOTE | 2016-11-15 00:16 | ECWPNPC ---
PATIENT NAME: WILLIE ANTONIO : 1975 GENDER: MALE VISIT DATE: 11/14/2016 DISCHARGE DATE: 11/14/16 1232 VISIT LOCKED DATE TIME: PHYSICIAN: ANTONIO NAZARIO RESOURCE: ANTONIO NAZARIO REASON FOR APPOINTMENT 1. NECK/BACK HISTORY OF PRESENT ILLNESS FALL RISK SCREENIN41 Y/O MALE WITH HISTORY OF CHRONIC BACK AND JOINT PAIN.CHIEF AREA OF PAIN IS NECK.PAIN IS AGGREVATED BY BENDING AND LIFTING.LOW BACK IS AGGREVATED BY LIFTING AND BENDING.PAIN IS WORSE IN AM.THIS SEEMS TO HAVE STARTED IN 2006 WITHOUT PRECIPITATING EVENT.WAS TREATED WITH PERCOCET 10/325 4 PER DAY FOR APPROXIMATLEY 8 YEARS WHILE IN [place].LAST WAS USED IN 2015.WAS USING TRAMADOL 50MG,MELOXICAM,AND FLEXERIL LAST MONTH.DID NOT FIND IT VERY EFFECTIVE.REPORTING DIFFICULTY SLEEPING DUE TO PAIN.DESCRIBES INTERMITTENT SHOOTING PAIN DOWN RIGHT ARM.COMPLAINING OF RIGHT KNEE PAIN THAT IS SHARP.DENIES RECENT FEVER ,ILLNESS OR WEIGHT LOSS.DENIES BOWEL OR BLADDER INCONTINENCE. SCREENING :NO FALLS IN THE PAST YEAR PAIN SCREENING: PATIENT HAS A COMPLAINT OF ACUTE OR CHRONIC PAIN YES CURRENT MEDICATIONS TAKING MOTRIN IB 200 MG TABLET 3 TABS ORALLY BID TAKING CYCLOBENZAPRINE HCL 10 MG TABLET 1 TABLET ORALLY THREE TIMES A DAY TAKING TRAMADOL HCL 50 MG TABLET 1 TABLET NEEDED ORALLY TWICE A DAY (MDD2) TAKING RANITIDINE HCL 150 MG TABLET 1 TABLET ORALLY TWICE DAILY TAKING MELOXICAM 7.5 MG TABLET 1 TABLET ORALLY BID DISCONTINUED DICLOFENAC SODIUM 75 MG TABLET DELAYED RELEASE 1 TABLET WITH FOOD OR MILK ORALLY TWICE A DAY MEDICATION LIST REVIEWED AND RECONCILED WITH THE PATIENT PAST MEDICAL HISTORY BACK AND NECK PAIN GERD ALLERGIES N.K.D.A. SURGICAL HISTORY DENIES PAST SURGICAL HISTORY FAMILY HISTORY FATHER: 76 YRS, DIAGNOSED WITH DIABETES, HEART DISEASE, OTHER MOTHER: ALIVE 72 YRS, DIAGNOSED WITH HYPERTENSION DAD--ALZHEIMER AND DEMENTIAMOM--FE DEFICIENCY. SOCIAL HISTORY GENERAL: TOBACCO USE ARE YOU A:CURRENT SMOKER HOW MANY CIGARETTES A DAY DO YOU SMOKE?5 OR LESS HOW SOON AFTER YOU WAKE UP DO YOU SMOKE YOUR FIRST CIGARETTE?31-60 MIN HOW OFTEN DO YOU SMOKE CIGARETTES?EVERY DAY PATIENT COUNSELED ON THE DANGERS OF TOBACCO USE AND URGED TO QUIT:11/14/2016 ARE YOU INTERESTED IN QUITTING?READY TO QUIT HAS CUT WAY BACK ON THE AMOUNT THAT HE SMOKES COUNSELED THE PATIENT ON TOBACCO USE, CESSATION [id number] ADDITIONAL FINDINGS: TOBACCO USER NONE SMOKING CESSATION INFORMATION GIVEN09/06/2016 ADDITIONAL FINDINGS: TOBACCO NON-USER CURRENT SMOKER VAPORNO E-CIGARETTENO BMI CARE GOAL FOLLOW-UP ABOVE NORMAL BMI FOLLOW-UPDIETARY MANAGEMENT EDUCATION, GUIDANCE, AND COUNSELING ALCOHOL SCREENING POINTS1 INTERPRETATIONNEGATIVE RECREATIONAL DRUG USE DRUG USE?YES HOW OFTEN AND HOW MUCH? OCC POT SMOKER CAFFEINE CAFFEINE USE?YES HOW OFTEN AND HOW MUCH? 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 DIET: REGULAR. EXERCISE: NO REGULAR EXERCISE. MARITAL STATUS: . OTHERS AT HOME: OTHER RELATIVE. PETS: 1 DOG AND CAT. YARSANISM: NO ANGLICAN BELIEFS THAT WOULD IMPACT HEALTH CARE. LANGUAGE: [place]OTHO. EDUCATION: HIGH SCHOOL GRAD. PLAN OF CARE FOR PAIN CLINIC REVIEWED WITH PATIENT AND HE VERBALIZED UNDERSTANDING . LEARNING BARRIERS / SPECIAL NEEDS CHANGE FROM LAST VISIT?NO BARRIERS TO LEARNING?NO HEARING IMPAIRED?NO VISION IMPAIRED?YES :CORRECTIVE LENSES COGNITIVELY IMPAIRED?NO READINESS TO LEARN?YES LEARNING PREFERENCES?YES :TAPES/VIDEOS, DEMONSTRATION/VERBAL INSTRUCTION LEARNING CAPABILITIES PRESENT?YES EMOTIONAL BARRIERS?NO SPECIAL DEVICES?NO PAIN CLINIC PFS, CLERGY, PUBLIC HEALTH REFERRALS PFS REFERRAL NEEDED?NO CLERGY REFERRAL NEEDED?NO PUBLIC HEALTH REFERRAL NEEDED?NO ADVANCED DIRECTIVES HEALTH CARE PROXY?NO DECLINED INFORMATION AT THIS TIME POWER OF PICKING BELT OPERATOR?NO DOMESTIC VIOLENCE: NONE. HOSPITALIZATION/MAJOR DIAGNOSTIC PROCEDURE ANUJ [place] FEVER AGE 10-11 REVIEW OF SYSTEMS CONSTITUTIONAL: RECENT ILLNESS DENIES . ANY CHANGE IN YOUR MEDICAL CONDITION? NO . CHILLS NO . FEVER NO, DENIES . WEIGHT LOSS DENIES . INFECTION: DO YOU HAVE NEW INFECTIONS? NO . DO YOU HAVE HISTORY OF MRSA? NO . MUSCULOSKELETAL: ANY NEW PATTERNS OF PAIN OR NUMBNESS? NO . SYTEMIC LUPUS NO . JOINT PAIN DENIES . JOINT STIFFNESS DENIES . GASTROENTEROLOGY: BOWEL INCONTINENCE DENIES . ANY NEW CHANGE IN BOWEL CONTROL? NO . BARRETTS ESOPHAGUS NO . CIRRHOSIS NO . HEPATITIS NO . LIVER FAILURE NO . ACID REFLUX YES . BLOOD IN STOOL DENIES . UNEXPLAINED WEIGHT LOSS NO . GENITOURINARY: ANY NEW CHANGE IN BLADDER CONTROL? NO . IS THERE A CHANCE YOU COULD BE ? NO . HEMATOLOGY/LYMPH: DENIES . BLEEDING DISORDER DENIES . DO YOU TAKE ANY BLOOD THINNERS? (FOR EXAMPLE- COUMADIN, PLAVIX, AGGRENOX, PLATEL, PRADAXA, OR XARELTO) NO . WHEN WAS YOUR LAST DOSE? DATE: TIME: . LOW PLATELET COUNT NO . SICKLE CELL DISEASE NO . VON WILLIEBRANDS NO . FACTOR V LEIDEN NO . THALLASEMIA NO . ANEMIA NO . EASY BRUISING NO . NEUROLOGY: HAVE YOU FALLEN IN THE PAST 6 MONTHS? NO . ANY NEW EXTREMITY NUMBNESS OR WEAKNESS? NO . HEAD INJURY NO . DEMENTIA NO . CEREBRAL PALSY NO . MULTIPLE SCLEROSIS NO . DIZZINESS NO . HEADACHE NO, DENIES . SEIZURES DENIES . STROKES NO . VERTIGO NO . CARDIOLOGY: DO YOU HAVE A PACEMAKER OR DEFIBRILLATOR? NO . ANGINA NO . HEART ATTACK NO . HEART SURGERY NO . CONGESTIVE HEART FAILURE/FLUID OVERLOAD NO . CHEST PAIN NO, DENIES . HIGH BLOOD PRESSURE NO . IRREGULAR HEART BEAT NO . SHORTNESS OF BREATH DENIES . RESPIRATORY: HAVE YOU BEEN SICK IN THE PAST WEEK? NO . FEVER NO . FLU LIKE SYMPTOMS? NO . CPAP NO . BYPAP NO . ASTHMA NO . EMPHYSEMA NO . CHRONIC LUNG DISEASES NO . SHORTNESS OF BREATH ON EXERTION NO . COUGH NO, DENIES . SHORTNESS OF BREATH DENIES . SNORING NO . INTEGUMENTARY: DO YOU HAVE ANY RASHES OR OPEN SORES? NO . ALLERGIC/IMMUNO: ARE YOU ALLERGIC TO SHELLFISH OR IV DYE? NO . ANY NEW ALLERGIES? NO . PSYCHIATRIC: DO YOU HAVE THOUGHTS OF HURTING YOURSELF OR SOMEONE ELSE? NO . ARE YOU ABUSED, NEGLECTED, OR IN AN UNSAFE ENVIRONMENT? NO . ENDOCRINOLOGY: THYROID DISEASE DENIES . ARE YOU DIABETIC? NO . DIABETES DENIES . THYROID DISORDER NO . OTHER: DO YOU NEED ANY PRESCRIPTIONS? NO . IF YES, PLEASE LIST: ____ . ANY NEW PROBLEMS WITH YOUR MEDICATIONS? NO . WHEN DID YOU LAST EAT? ____ . WHEN DID YOU LAST DRINK? ____ . WHAT DID YOU LAST DRINK? ____ . NAME OF PERSON DRIVING YOU HOME? ____ . DO YOU HAVE ANY OTHER QUESTIONS OR CONCERNS HAS USED PERCOCET IN THE PAST WITH GOOD EFFECT . HEENT: CHANGE IN VISION DENIES . LOSS OF HEARING DENIES . TROUBLE SWALLOWING DENIES . PSYCHOLOGY: ANXIETY DENIES . DEPRESSION DENIES . UROLOGY: URINARY INCONTINENCE DENIES . BLOOD IN URINE DENIES . REVIEWED BY: PROVIDER: ANTONIO DIAZ . VITAL SIGNS WT 221.4 LBS, HT 5'11", BMI 30.88 INDEX, BP 143/79 MM HG, HR 72 /MIN, RR 16 /MIN, TEMP 99.1 F, OXYGEN SAT % 99%, NA INITIALS SC 11:10, REVIEWED BY: AD. EXAMINATION GENERAL EXAMINATION: HEENT:HEAD:, NORMOCEPHALIC, EYES:, EYES NORMAL, NOSE:, NOSE CLEAR, THROAT: NORMAL. LUNGS:LUNG SOUNDS ARE CLEAR. HEART:HEART RATE REGULAR. ABDOMEN:SOFT AND NOT TENDER, NON-DISTENDED. MUSCULOSKELETAL:*. LUMBAR SACRAL SPINEMUSCLE STRENGTH TESTING 5/5 BILATERAL LOWER EXTREMITIES. PALPATION: + FOR PAIN OVER L/S SPINE. + FOR PAIN OVER L/S PARASPINALS. THORACIC SPINE+ FOR PAIN WITH PALPATION OF THORACIC SPINE. + FOR PAIN WITH PALPATION OF THORACIC PARASPINAL. CERVICAL+ FOR PAIN WITH PALPATION OF CERVICAL SPINE. + FOR PAIN WITH PALPATION OF CERVICAL PARAASPINALS. + FOR PAIN WITH PALPATION OF TRAPEZIUS BILAT.. SKIN:NORMAL, NO RASH. NEUROLOGIC EXAM:ALERT AND ORIENTED X 3, DTRS 1-2+ IN ALL 4 EXTREMITIES, DENIES UPPER EXTREMETIES SENSORY LOSS, DENIES LOWER EXTREMETIES SENSORY LOSS. DIAGNOSTIC:MRI [id number].. ASSESSMENTS OSTEOARTHRITIS OF SPINE WITH RADICULOPATHY, CERVICAL REGION - M47.22 (PRIMARY) ARTHRALGIA, UNSPECIFIED JOINT - M25.50 TREATMENT OSTEOARTHRITIS OF SPINE WITH RADICULOPATHY, CERVICAL REGION REFILL TRAMADOL HCL TABLET, 50 MG, 1 TABLET NEEDED, ORALLY, TWICE A DAY (MDD2), 7 DAY(S), 14, REFILLS 0 REFILL MELOXICAM TABLET, 7.5 MG, 1 TABLET, ORALLY, BID, 30 DAY(S), 60 TABLET, REFILLS 2 START CYMBALTA CAPSULE DELAYED RELEASE PARTICLES, 30 MG, 1 CAPSULE, ORALLY, DAILY, 30 DAY(S), 30 CAPSULE, REFILLS 2 NOTES: LAB WORK-INFLAMMATORY ORDERED. OTHERS CLINICAL NOTES: PATIENT WAS ADVISED TO START A WALKING PROGRAM TO STRENGTHEN LUMBAR PARASPINAL MUSCLES AND IMPROVE MOBILITY. THEY WERE ADVISED THAT THIS WILL IMPROVE WEIGHT LOSS AND ALSO DEPRESSION/FIBROMYALGIA SYMPTOMS. ADVISED TO WALK 10 MINUTES EVERY OTHER DAY ON A FLAT SURFACE. EMPHASIZED THE IMPORTANCE OF DOING THIS CONSISTANTLY AND NOT SPORATICALLY TO AVOID INJURY. STRONG ADVISED NOT TO DO MORE THAN 10 MINUTES EVERY OTHER DSY FOR THE FIRST 4 WEEKS. PROCEDURE CODES FA211 ESTABILISHED PATIENT [facility] CHARGE DISPOSITION & COMMUNICATION FOLLOW UP 4 WEEKS ELECTRONICALLY SIGNED BY JOE LEWIS ON 11/14/2016 AT 01:33 PM EST DISCLAIMER : THIS IS A VISIT SUMMARY EXTRACTED FROM THE [employer] CHART. IT IS NOT A COPY OF THE [employer] PROGRESS NOTE. NADEEN
== END ==
LOC: M PAIN 11:20
PROVIDERS: ATTEND Nurse Practitioner Family
DX: G89.29 Other chronic pain (principal); M47.22 Other spondylosis with radiculopathy, cervical region; M25.50 Pain in unspecified joint; K21.9 Gastro-esophageal reflux disease without esophagitis; F17.200 Nicotine dependence, unspecified, uncomplicated; M50.30 Other cervical disc degeneration, unspecified cervical region; M51.37 Other intervertebral disc degeneration, lumbosacral region; Z79.1 Long term (current) use of non-steroidal anti-inflammatories (NSAID); Z79.891 Long term (current) use of opiate analgesic; Z79.899 Other long term (current) drug therapy

== ENCOUNTER → 2016-12-13 | Outpatient (CLI) | payer OTHER ==
--- NOTE | 2016-12-20 02:12 | ECWPNPC ---
PATIENT NAME: WILLIE ANTONIO : 1975 GENDER: MALE VISIT DATE: 12/13/2016 DISCHARGE DATE: 12/13/16 1348 VISIT LOCKED DATE TIME: PHYSICIAN: ANTONIO NAZARIO RESOURCE: ANTONIO NAZARIO REASON FOR APPOINTMENT 1. NECK/BACK HISTORY OF PRESENT ILLNESS HISTORY OF PRESENT ILLNESS: HERE FOR F/U AND MANAGEMENT OF CHRONIC LOW BACK AND NECK PAIN.HAS NOT HAD LABWORK DRAWN ORDERED AT LAST VISIT WHICH WAS INITIAL VISIT.TOOK CYMBALTA 30MG DAILY X2 DAYS THEN BEGAN WITH SEVERE NAUSEA AND SWEATING AND HE STOPPED MEDICATION.MELOXICAM IS SOMEWHAT HELPFUL.DISCUSSED TREATMENT OPTIONS. PAIN THE PATIENT DESCRIBES THE PAIN... FALL RISK SCREENING: SCREENING :NO FALLS IN THE PAST YEAR CURRENT MEDICATIONS TAKING MOTRIN IB 200 MG TABLET 3 TABS ORALLY BID TAKING CYCLOBENZAPRINE HCL 10 MG TABLET 1 TABLET ORALLY THREE TIMES A DAY TAKING RANITIDINE HCL 150 MG TABLET 1 TABLET ORALLY TWICE DAILY TAKING MELOXICAM 7.5 MG TABLET 1 TABLET ORALLY BID NOT-TAKING TRAMADOL HCL 50 MG TABLET 1 TABLET NEEDED ORALLY TWICE A DAY (MDD2) NOT-TAKING CYMBALTA 30 MG CAPSULE DELAYED RELEASE PARTICLES 1 CAPSULE ORALLY DAILY MEDICATION LIST REVIEWED AND RECONCILED WITH THE PATIENT PAST MEDICAL HISTORY BACK AND NECK PAIN GERD ALLERGIES CYMBALTA: SHAKING/NAUSEATED: SIDE EFFECTS REVIEW OF SYSTEMS CONSTITUTIONAL: ANY CHANGE IN YOUR MEDICAL CONDITION? NO . CHILLS NO . FEVER NO . INFECTION: DO YOU HAVE NEW INFECTIONS? NO . DO YOU HAVE HISTORY OF MRSA? NO . MUSCULOSKELETAL: ANY NEW PATTERNS OF PAIN OR NUMBNESS? NO . GASTROENTEROLOGY: ANY NEW CHANGE IN BOWEL CONTROL? NO . GENITOURINARY: ANY NEW CHANGE IN BLADDER CONTROL? NO . IS THERE A CHANCE YOU COULD BE ? NO . HEMATOLOGY/LYMPH: DO YOU TAKE ANY BLOOD THINNERS? (FOR EXAMPLE- COUMADIN, PLAVIX, AGGRENOX, PLATEL, PRADAXA, OR XARELTO) NO . WHEN WAS YOUR LAST DOSE? DATE: TIME: . NEUROLOGY: HAVE YOU FALLEN IN THE PAST 6 MONTHS? NO . ANY NEW EXTREMITY NUMBNESS OR WEAKNESS? NO . CARDIOLOGY: DO YOU HAVE A PACEMAKER OR DEFIBRILLATOR? NO . RESPIRATORY: HAVE YOU BEEN SICK IN THE PAST WEEK? NO . FEVER NO . FLU LIKE SYMPTOMS? NO . COUGH NO . INTEGUMENTARY: DO YOU HAVE ANY RASHES OR OPEN SORES? NO . ALLERGIC/IMMUNO: ARE YOU ALLERGIC TO SHELLFISH OR IV DYE? NO . ANY NEW ALLERGIES? NO . PSYCHIATRIC: DO YOU HAVE THOUGHTS OF HURTING YOURSELF OR SOMEONE ELSE? NO . ARE YOU ABUSED, NEGLECTED, OR IN AN UNSAFE ENVIRONMENT? NO . ENDOCRINOLOGY: ARE YOU DIABETIC? NO . OTHER: DO YOU NEED ANY PRESCRIPTIONS? YES WOULD LIKE TO BE BACK ON OXYCODONE . IF YES, PLEASE LIST: ____ . ANY NEW PROBLEMS WITH YOUR MEDICATIONS? NO . WHEN DID YOU LAST EAT? ____ . WHEN DID YOU LAST DRINK? ____ . WHAT DID YOU LAST DRINK? ____ . NAME OF PERSON DRIVING YOU HOME? ____ . DO YOU HAVE ANY OTHER QUESTIONS OR CONCERNS NO . REVIEWED BY: PROVIDER: ANTONIO DIAZ . VITAL SIGNS WT 221.4 LBS, HT 71", BMI 30.88 INDEX, BP 147/96 MM HG, HR 64 /MIN, RR 16 /MIN, TEMP 98.7 F, OXYGEN SAT % 100, NA INITIALS TL 1103, REVIEWED BY: KG. EXAMINATION GENERAL EXAMINATION: HEENT:HEAD:, NORMOCEPHALIC, EYES:, EYES NORMAL, NOSE:, NOSE CLEAR, THROAT: NORMAL. LUNGS:LUNG SOUNDS ARE CLEAR. HEART:HEART RATE REGULAR. ABDOMEN:SOFT AND NOT TENDER, NON-DISTENDED. MUSCULOSKELETAL:*. LUMBAR SACRAL SPINEMUSCLE STRENGTH TESTING 5/5 BILATERAL LOWER EXTREMITIES. PALPATION: + FOR PAIN OVER L/S SPINE. + FOR PAIN OVER L/S PARASPINALS. THORACIC SPINE+ FOR PAIN WITH PALPATION OF THORACIC SPINE. + FOR PAIN WITH PALPATION OF THORACIC PARASPINAL. CERVICAL+ FOR PAIN WITH PALPATION OF CERVICAL SPINE. + FOR PAIN WITH PALPATION OF CERVICAL PARAASPINALS. + FOR PAIN WITH PALPATION OF TRAPEZIUS BILAT.. SKIN:NORMAL, NO RASH. NEUROLOGIC EXAM:ALERT AND ORIENTED X 3, DTRS 1-2+ IN ALL 4 EXTREMITIES, DENIES UPPER EXTREMETIES SENSORY LOSS, DENIES LOWER EXTREMETIES SENSORY LOSS. DIAGNOSTIC:MRI [id number].. 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 WITHOUT [id number] CERVICAL EPIDURAL RIGHT NOTES: OPTION FOR EPIDURAL INJECTIONS WERE DISCUSSED WITH THE PATIENT. FDA CONCERNS AND WARNING WERE REVIEWED INCLUDING THE RISK OF BLEEDING, RISK OF INFECTION, RISK OF INCREASED PAIN OR NEURALGIA, AND RISK OF PARALYSIS. PATIENT'S QUESTIONS WERE ANSWERED AND HE/SHE WISHES TO MOVE FORWARD WITH EPIDURAL INJECTION., ISTOP REGISTRY REVIEWED AND DEMNOSTRATES COMPLLIANCE. , RISKS AND BENEFITS OF NARCOTIC/OPIOD MEDICATIONS WERE REVIEWED WITH PATIENT - THIS INCLUDES BUT IS NOT LIMITED TO RISK OF DEPENDANCE/DEVELOPMENT OF ADDICTION, MOOD DISTURBANCE AND DEPRESSION, OSTEOPOROSIS, HORMONAL AND LABIDAL CHANGES, RESPIRATORY DEPRESSION AND . PATIENT IS ADVISED NOT TO DRIVE WHILE ON THESE MEDICATIONSLAB WORK KENTRELL,RHEUMATOID FACTOR,LUPUS ANTICOAGULANT,ESR,LYME TITRE,FREE T4. PROCEDURE CODES FA211 ESTABILISHED PATIENT [facility] CHARGE DISPOSITION & COMMUNICATION FOLLOW UP 2WK POST (REASON: KANWAL) ELECTRONICALLY SIGNED BY JOE LEWIS ON 12/19/2016 AT 11:09 AM EDT DISCLAIMER : THIS IS A VISIT SUMMARY EXTRACTED FROM THE [employer] CHART. IT IS NOT A COPY OF THE [employer] PROGRESS NOTE. NADEEN
== END ==
LOC: M PAIN 11:00
PROVIDERS: ATTEND Nurse Practitioner Family
DX: M47.22 Other spondylosis with radiculopathy, cervical region (principal); M25.50 Pain in unspecified joint; M54.5 Low back pain; M54.2 Cervicalgia; G89.29 Other chronic pain; Z79.899 Other long term (current) drug therapy; Z88.8 Allergy status to other drugs, medicaments and biological substances

== ENCOUNTER 2017-04-05 20:37 | Emergency (ER) | payer OTHER ==
[~2017-04-05] VITALS: Ht 180.3 cm; Wt 97.7 kg
[2017-04-05] MEDS ORDERED: MELO7.5T7 (20:46)
[2017-04-05] MEDS ORDERED: GABA-282 PO (20:46)
[2017-04-05] MEDS ORDERED: RANI150T (20:46)
[2017-04-05] MEDS ORDERED: HYDR-3713 (22:11)
[2017-04-05] MEDS ORDERED: KETOROLAC 60 MG/2 ML VIAL (J1885) IM ONE (23:00)
[2017-04-05] MEDS ORDERED: PERCOCET 5MG/325MG TAB PO ONE (23:00)
[2017-04-05] MEDS ORDERED: diazePAM 5 MG TAB PO ONE (23:00)
[2017-04-05 23:41] VITALS: BP 132/82
[2017-04-05] MEDS ORDERED: MEDR4PAK PO (23:44)
[2017-04-05] MEDS ORDERED: SKEL800T97 PO (23:44)
== END 2017-04-05 23:56 | disposition home or self-care (01) ==
LOC: M ED 20:37
DX: M51.36 Other intervertebral disc degeneration, lumbar region (principal); F17.210 Nicotine dependence, cigarettes, uncomplicated; Z79.899 Other long term (current) drug therapy

== ENCOUNTER 2017-04-16 16:32 | Emergency (ER) | payer OTHER ==
[~2017-04-16] VITALS: Ht 180.3 cm; Wt 97.7 kg
[2017-04-16 16:32] VITALS: BP 144/93
[~2017-04-16 16:32] MED LIST: GABA-282 PO; HYDR-3713; MEDR4PAK PO; MELO7.5T7; RANI150T; SKEL800T97 PO
[2017-04-16] MEDS ORDERED: OXYC1TAB23 PO (16:44)
[2017-04-16] MEDS ORDERED: PERC5TAB12 PO (17:16)
[2017-04-16] MEDS ORDERED: NORCOTAB PO (17:35)
== END 2017-04-16 17:26 | disposition home or self-care (01) ==
LOC: M ED 16:32
DX: M54.42 Lumbago with sciatica, left side (principal); G89.29 Other chronic pain; Z76.0 Encounter for issue of repeat prescription; Z72.0 Tobacco use

== ENCOUNTER 2017-06-15 17:17 | Emergency (ER) | payer OTHER ==
[~2017-06-15] VITALS: Ht 180.3 cm; Wt 99.1 kg
[~2017-06-15 17:17] MED LIST changes: +NORCOTAB PO; +OXYC1TAB23 PO; +PERC5TAB12 PO
[2017-06-15] MEDS ORDERED: GABA-282 (17:33)
[2017-06-15] MEDS ORDERED: HYDROmorphone HCL 1 MG/ML SYRINGE (J1170) IM ONE ×2 (19:00→20:45)
[2017-06-15 22:25] VITALS: BP 153/79
--- NOTE | 2017-06-15 22:40 | REPUSA ---
MRI of the lumbar spine without contrast Clinical statement: Pain. Recent discectomy at L5/S1. Technique: Multiecho multiplanar MRI images of the lumbar spine were obtained without administration of contrast. No comparison is available. Findings: The lumbar vertebral bodies are in satisfactory position and alignment. No fractures or dis locations are demonstrated. Normal heterogeneous bone marrow signal is noted. No osseous tumors are s een. The intervertebral disc heights are well maintained and demonstrate normal signal. Postsurgical changes are seen at L5/S1 from recent partial discectomy. The filum terminale and conus medullaris ap pear unremarkable. The spinal cord demonstrates normal signal and contour. The surrounding soft tissu es are within normal limits. At L4/L5, there is a minimal disc osteophyte complex and disc bulge. There is no evidence of disc her niation or central canal stenosis. There is mild bilateral neural foraminal narrowing. At L5/S1, there is a T1 hypointense left paracentral lesion, causing mass effect on the left anterior thecal sac, measuring 0.7 x 1.1 cm. There is no evidence of central canal stenosis. There is moderat alana severe narrowing of the left neural foramen.. Impression: 1. At L5/S1, T1 hypointense focus in the left paracentral region, causing mild mass effect on the lef t anterior thecal sac and narrowing of the left neural foramen. However, I suspect this represents he morrhage or postsurgical changes rather than a recurrent disc at this level. No discrete evidence of central canal stenosis is seen. If there is continued clinical concern, MRI with and without contrast to evaluate this region would be helpful. 2. Minimal disc osteophyte complex and disc bulge at L4/L5.
[2017-06-15] MEDS ORDERED: OXYCODONE/APAP 5MG/325MG(BULK FOR ED) 1 TABLET PO ONE (23:00)
--- NOTE | 2017-06-17 09:56 | ED PDOC ---
Post-Departure Follow-Up dr jose guillory faxed formal report of mri ls spine for fu Jenifer Abbott MD Jun 17, 2017 09:56
== END 2017-06-15 22:54 | disposition home or self-care (01) ==
LOC: M ED 17:17
DX: M54.5 Low back pain (principal); G89.29 Other chronic pain; Z72.0 Tobacco use
CPT/HCPCS: 72148; 96372; 99282; J1170

== ENCOUNTER → 2017-09-23 | Outpatient (CLI) | payer OTHER | LOC: M WUC 12:04 | DX: M51.37 Other intervertebral disc degeneration, lumbosacral region (principal) | CPT/HCPCS: 72110 ==

== ENCOUNTER → 2017-10-16 | Outpatient (CLI) | payer OTHER ==
[~2017-10-16] MED LIST changes: -GABA-282 PO; -HYDR-3713; -MEDR4PAK PO; -MELO7.5T7; -NORCOTAB PO; -OXYC1TAB23 PO; -PERC5TAB12 PO; +PROHANCE 279.3MG/ML 15ML VIAL (A9576) As Ordered; +PROHANCE 279.3MG/ML 5ML VIAL (A9576) As Ordered; -RANI150T; -SKEL800T97 PO
== END ==
LOC: M RAD 12:49
DX: M54.42 Lumbago with sciatica, left side (principal)
CPT/HCPCS: A9576

== ENCOUNTER → 2017-10-27 | Outpatient (CLI) | payer OTHER | LOC: M PAIN 15:15 | DX: G89.29 Other chronic pain (principal); M96.1 Postlaminectomy syndrome, not elsewhere classified; M51.16 Intervertebral disc disorders with radiculopathy, lumbar region; I10 Essential (primary) hypertension; F17.210 Nicotine dependence, cigarettes, uncomplicated; Z79.899 Other long term (current) drug therapy; Z88.6 Allergy status to analgesic agent; Z88.8 Allergy status to other drugs, medicaments and biological substances | CPT/HCPCS: G0463 ==

== ENCOUNTER 2017-11-10 11:44 | Emergency (ER) | payer OTHER ==
[2017-11-10] MEDS: PERCOCET 5MG/325MG TAB PO (13:59)
[2017-11-10] MEDS: KETOROLAC 60 MG/2 ML VIAL (J1885) IM (13:59)
== END 2017-11-10 15:21 | disposition home or self-care (01) ==
LOC: M ED 11:44
DX: M25.852 Other specified joint disorders, left hip (principal); M54.30 Sciatica, unspecified side; F17.200 Nicotine dependence, unspecified, uncomplicated; N42.0 Calculus of prostate; Z79.899 Other long term (current) drug therapy; Z91.02 Food additives allergy status; Z88.8 Allergy status to other drugs, medicaments and biological substances
CPT/HCPCS: J1885

== ENCOUNTER → 2018-03-14 | Outpatient (CLI) | payer OTHER | LOC: M PAIN 11:00 | DX: M47.22 Other spondylosis with radiculopathy, cervical region (principal); M25.50 Pain in unspecified joint | CPT/HCPCS: G0463 ==